=== PATIENT | male | born 1955 | race Two or more races ===

== ENCOUNTER 2024-03-02 11:59 | Inpatient (IN) | payer MEDICARE, MEDICAID ==
[~2024-03-02] VITALS: Ht 167.6 cm; Wt 77.0 kg
--- NOTE | 2024-03-02 12:09 | ED.PDOC ---
History of Present Illness HPI Comments 69-year-old male brought by paramedics from senior care because of abdominal pain which started 2 hours ago. He states the pain is 10/10 with no radiation of the pain. He has not had a bowel movement today. He states that he is passing gas. Denies nausea vomiting. History of hypertension chronic kidney d isease on dialysis Thursday COPD CHF. Blood pressure 137/77. Denies any other symptoms. Time Seen by MD: 12:05 Reviewed Notes: Nurses Notes, Medications, Allergies Information Source: Patient, Emergency Med Personnel Mode of Arrival: EMS Severity: Moderate Timing: Hours Duration: Since onset Past Medical History PAST MEDICAL HISTORY: ESRD, HTN Surgical History: Denies all surgeries Family History Family History: Reviewed,noncontributory to illness Social History Smoker: Non-Smoker Alcohol: Denies ETOH Use Drugs: Denies Drug Use Lives In: Snf Constitutional: denies: chills, diaphoresis, fatigue, fever, malaise, sweats, weakness, others EENTM: denies: blurred vision, double vision, ear bleeding, ear discharge, ear drainage, ear pain, ear ringing, eye pain, eye redness, hearing loss, mouth pain, mouth swelling, nasal discharge, nose bleeding, nose congestion, nose pain, photophobia, tearing, throat pain, throat swelling, voice changes, others Respiratory: denies: cough, hemoptysis, orthopnea, SOB at rest, shortness of breath, SOB with excertion, stridor, wheezing, others Cardiovascular: denies: chest pain, dizzy spells, diaphoresis, Dyspnea on exertion, edema, irregular heart beat, left arm pain, lightheadedness, palpitations, PND, syncope, others Gastrointestinal: reports: abdominal pain; denies: abdomen distended, blood streaked bowels, constipated, diarrhea, dysphagia, difficulty swallowing, hematemesis, melena, nausea, poor appetite, poor fluid intake, rectal bleeding, rectal pain, vomiting, others Genitourinary: denies: burning, dysuria, flank pain, frequency, hematuria, incontinence, penile discharge, penile sore, pain, testicle pain, testicle swelling, urgency, others Neurological: denies: dizziness, fainting, headache, left sided numbness, left sided weakness, numbness, paresthesia, pre-existing deficit, right sided numbness, right sided weakness, seizure, speech problems, tingling, tremors, weakness, others Musculoskeletal: denies: back pain, gout, joint pain, joint swelling, muscle pain, muscle stiffness, neck pain, others Integumetry: denies: bruises, change in color, change in hair/nails, dryness, laceration, lesions, lumps, rash, wounds, others Allergic/Immunocompromised: denies: Difficulty Healing, Frequent Infections, Hives, Itching, others Hematologic/Lymphatic: denies: anemia, blood clots, easy bleeding, easy bruising, swollen glands, others Endocrine: denies: excessive hunger, excessive sweating, excessive thirst, excessive urination, flushing, intolerance to cold, intolerance to heat, unexplained weight gain, unexplained weight loss, others Psychiatric: denies: anxiety, bipolar disorder, depression, hopeless, panic disorder, schizophrenia, sleepless, suicidal, others Physical Exam General Appearance: Moderate Distress HEENT: Normal ENT Inspection, Pharynx Normal, TMs Normal Neck: Full Range of Motion, Non-Tender, Normal, Normal Inspection Respiratory: Chest Non-Tender, Lungs Clear, No Accessory Muscle Use, No Respiratory Distress, Normal Breath Sounds Cardiovascular: No Edema, No JVD, No Murmur, No Gallop, Normal Peripheral Pulses, Regular Rate/Rhythm Breast Exam: Deferred Gastrointestinal: Distended, Soft Genitalia: Deferred Pelvic: Deferred Rectal: Deferred Extremities: No calf tenderness, Normal capillary refill, Normal inspection, Normal range of motion, Non-tender, No pedal edema Musculoskeletal : Apperance: Normal Neurologic: Alert Cerebellar Function: NOT DONE Reflexes: NOT DONE Skin: Dry, Normal Color, Warm Peripheral Pulses: 3+ Radial (R), 3+ Radial (L) Lymphatic: No Adenopathy Was a procedure done? Was a procedure done?: No Differential Dx Considerations may include: Small bowel obstruction Electrolyte imbalance X-Ray, Labs, Meds, VS Vital Signs Date Time Temp Pulse Resp B/P (MAP) Pulse Ox O2 Delivery O2 Flow Rate FiO2 03/02/24 12:19 98.1 76 18 137/77 (97) 100 Patient alert. Complaining of abdominal pain. Vitals stable. Answering all questions. He is on dialysis. Reviewed his previous visit. Blood pressure within normal limits. Explained to the patient. Continue cardiac monitoring. EKG reviewed does not show any acute changes. Time of 1ST Reevaluation: 12:08 Reevaluation 1ST: Unchanged Patient Education/Counseling: Diagnosis, Treatment, Prognosis Family Education/Counseling: No Family Present Departure 1 Departure Time of Disposition: 12:09 Impression: Primary Impression: CHF (congestive heart failure) Qualified Codes: I50.43 - Acute on chronic combined systolic (congestive) and diastolic (congestive) heart failure Additional Impression: Chronic kidney disease on chronic dialysis Disposition: ADMITTED INPATIENT Admit to: Med Surg Condition: Guarded Critical Care Note Critical Care Time?: Yes (45 min-critical care time only) Stability Stability form required: No Heart Score Heart Score: Heart Score Response (Comments) Value History Slightly Suspicious 0 EKG Normal 0 Age >65 2 Risk Factors >3 or Hx ASHD 2 Troponin Normal limit 0 Total 4 I personally scribed for SANTY HUTCHINS MD ([email or web address]) on 03/02/24 at 12:40. Electronically submitted by Taurus Bustillo ([email or web address]). SANTY HUTCHINS MD Mar 02, 2024 12:09
[2024-03-02 13:21] LABS: Basophils # (auto) 0 10 ^3/uL (0-0.2); Eosinophils # (auto) 0.1 10 ^3/uL (0-0.8); Red Cell Distribution Width 16.8 % (11.8-14.3)
[2024-03-02 13:23] LABS: Basophils % (auto) 0.2 % (0.0-2.0); Eosinophils % (auto) 0.9 % (0.0-7.0); Hematocrit 24.1 % (41.0-53.0); Lymphocytes # (auto) 1.2 10 ^3/uL (0.4-5.4); Lymphocytes % (auto) 14.7 % (10.0-50.0); Mean Corpuscular Hemoglobin 31.8 pg (28.0-32.0); Mean Corpuscular Hgb Conc. 33.4 g/dL (32.0-36.0); Monocytes # (auto) 0.9 10 ^3/uL (0-1.3); Neutrophils # (auto) 5.8 10 ^3/uL (1.6-8.6); Neutrophils % (auto) 73.2 % (37.0-80.0); Nucleated Red Blood Cells % 0.1 %; Platelet Count (auto) 216 10^3/uL (140-450); Red Blood Cells 2.53 10^6/uL (4.5-5.90)
--- NOTE | 2024-03-02 13:24 | DVH ---
EXAM: XY CHEST PORTABLE Indication:sob Technique: Single frontal view of the chest was obtained Comparison: None FINDINGS: Lines and Tubes: None Lungs: No focal consolidation. Pleura: No effusion. No pneumothorax. Cardiomediastinal contours: Unremarkable Bones: No acute osseous abnormality. IMPRESSION: No acute cardiopulmonary disease.
[2024-03-02 13:28] LABS: Chloride 98 mmol/L (98-107); Potassium 5.1 mmol/L (3.5-5.1); Sodium 139 mmol/L (136-145)
[2024-03-02 13:29] LABS: Anion Gap 8 (5-15); Carbon Dioxide 33 mmol/L (20-31)
[2024-03-02 13:35] LABS: BUN/Creatinine Ratio 10.9 (10.0-20.0); Blood Urea Nitrogen 73 mg/dL (9-23); Glucose 107 mg/dL (74-106)
--- NOTE | 2024-03-02 13:58 | DVHHP2 ---
History of Present Illness Reason for Visit: Abdominal Pain History of Present Illness 69 [facility] complaining of severe pain with history ESRD and HTN and htn urgency currently bp improved with pain maagment stating acute pain not improving states in agony no acute source esrd HD T S recommended for admission for continued evaluation Cardiovascular: HTN Renal/: Chronic renal failure Review of Systems Constitutional: Yes: Weakness; No: Fever, Chills, Sweats, Malaise, Other Eyes: No: Pain, Vision change, Conjunctivae inflammation, Eyelid inflammation, Other, Redness ENT: No: Ear pain, Ear discharge, Nose pain, Nose discharge, Nose congestion, Mouth pain, Mouth swelling, Throat pain, Throat swelling, Other Respiratory: No: Cough, Dry, Shortness of breath, SOB with excertion, Wheezing, Hemoptysis, Pleuritic Pain, Sputum, Wheezing, Other Cardiovascular: No: Chest Pain, Palpitations, Orthopnea, Paroxysmal Noc. Dyspnea, Edema, Lt Headedness, Other Gastrointestinal: Abdominal Pain; No: Nausea, Vomiting, Diarrhea, Constipation, Melena, Hematochezia, Other Genitourinary: No Dysuria, No Frequency, No Incontinence, No Hematuria, No Retention, No Other Musculoskeletal: No: other, neck pain, shoulder pain, arm pain, back pain, hand pain, leg pain, foot pain Skin: No: Rash, Lesions, Jaundice, Bruising, Other Neurological: No: Weakness, Numbness, Incoordination, Change in speech, Confusion, Seizures, Other Exam Vital Signs Vital Signs Date Time Temp Pulse Resp B/P (MAP) Pulse Ox O2 Delivery O2 Flow Rate FiO2 03/02/24 12:19 98.1 76 18 137/77 (97) 100 General Appearance: Alert, Oriented X3 HEENT: Atraumatic, PERRLA Respiratory: Clear to auscultation Cardiovascular: Regular rate, Normal S1 Abdominal: Normal bowel sounds, Soft Extremities: No clubbing, No cyanosis Skin: No rashes, No breakdown Neuro: Normal gait, Normal speech Psych/Mental Status: Mood NL Labs/Xrays Labs Test 03/02/24 13:00 Range/Units White Blood Count 8.0 4.4-10.8 10^3/uL Red Blood Count 2.53 L 4.5-5.90 10^6/uL Hemoglobin 8.0 L 13.5-17.5 g/dL Hematocrit 24.1 L 41.0-53.0 % Mean Corpuscular Volume 95.0 80.0-100.0 fL Mean Corpuscular Hemoglobin 31.8 28.0-32.0 pg Mean Corpuscular Hemoglobin Concent 33.4 32.0-36.0 g/dL Red Cell Distribution Width 16.8 H 11.8-14.3 % Platelet Count 216 140-450 10^3/uL Mean Platelet Volume 9.1 6.9-10.8 fL Neutrophils (%) (Auto) 73.2 37.0-80.0 % Lymphocytes (%) (Auto) 14.7 10.0-50.0 % Monocytes (%) (Auto) 11.0 0.0-12.0 % Eosinophils (%) (Auto) 0.9 0.0-7.0 % Basophils (%) (Auto) 0.2 0.0-2.0 % Neutrophils # (Auto) 5.8 1.6-8.6 10 ^3/uL Lymphocytes # (Auto) 1.2 0.4-5.4 10 ^3/uL Monocytes # (Auto) 0.9 0-1.3 10 ^3/uL Eosinophils # (Auto) 0.1 0-0.8 10 ^3/uL Basophils # (Auto) 0 0-0.2 10 ^3/uL Nucleated Red Blood Cells 0.1 % Sodium Level 139 136-145 mmol/L Potassium Level 5.1 3.5-5.1 mmol/L Chloride Level 98 98-107 mmol/L Carbon Dioxide Level 33 H 20-31 mmol/L Anion Gap 8 5-15 Blood Urea Nitrogen 73 H 9-23 mg/dL Creatinine 6.68 H 0.700-1.30 mg/dL Glomerular Filtration Rate Calc 8 >90 mL/min BUN/Creatinine Ratio 10.9 10.0-20.0 Serum Glucose 107 H 74-106 mg/dL Calcium Level 10.0 8.7-10.4 mg/dL Troponin I High Sensitivity 39 </=54 ng/L Assessment/Plan Assessment/Plan Admit Med/Surge Abdominal Pain Intractable with Hypertensive urgency BP improved with Pain management IV prn meds for pain IV hydration monitor for fluid overload ESRD renal evaluation required to continued with HD for HD Plan discussed with: Patient Problem List: (1) CHF (congestive heart failure) (2) Chronic kidney disease on chronic dialysis Date of Service: Mar 02, 2024 Billing Provider: GEMMA AZEVEDO MD Common Visit Codes: 08572-[id number] INP/OBS CARE (HIGH) GEMMA AZEVEDO MD Mar 02, 2024 13:58
[2024-03-02] MEDS ORDERED: MAALOX PLUS or MAALOX 30 ML PO PRN (14:00)
[2024-03-02] MEDS ORDERED: ONDANSETRON HCL 4 MG/2 ML VIAL IV PRN (14:00)
[2024-03-02] MEDS ORDERED: DOCUSATE SOD 100 MG CAP PO PRN (14:00)
[2024-03-02] MEDS ORDERED: LORazepam 0.5 MG TAB PO PRN (14:00)
[2024-03-02] MEDS: MORPHINE SULFATE INJ 2 MG/ml SYRG IM ONE (14:15)
[2024-03-02] MEDS: ONDANSETRON HCL 4 MG/2 ML VIAL IM ONE (14:15)
[2024-03-02] MEDS: MORPHINE SULFATE 4 MG/ML SYR/VIAL IV ONE (14:27)
[2024-03-02] MEDS: ONDANSETRON HCL 4 MG/2 ML VIAL IV ONE (14:28)
--- NOTE | 2024-03-02 16:40 | DVHINCON2 ---
Date of service: Mar 02, 2024 Referring Physician Hospitalist Reason for Consultation ESRD History of Present Illness 69-year-old male past medical history of end-stage renal disease for more than 10 years, alcohol abuse with liver disease, hypertension. Patient gave limited history because he is complaining of abdominal pain. He reports that he gets dialysis on Thursday and Saturdays at [facility] in his normally transported from a chronic living facility. He reports that he had a complete dialysis treatment on Thursday however this morning he woke up complaining of abdominal pain and distention. Allergies: Coded Allergies: NO KNOWN ALLERGIES (Unverified , 03/02/24) Current Medications Current Medications Medications (Trade) Dose Ordered Sig/Mak Route PRN Reason Start Time Stop Time Status Last Admin Lorazepam (Ativan Tablet) 0.5 mg Q6HP PRN PO ANXIETY 03/02/24 14:00 Al Hydrox/Mg Hydrox/Simethicone (Maalox Plus) 30 ml Q6HP PRN PO FOR STOMACH DISTRESS 03/02/24 14:00 Docusate Sodium (Colace Capsule) 100 mg BIDPRN PRN PO FOR CONSTIPATION 03/02/24 14:00 Acetaminophen (Tylenol Tablet) 650 mg Q6HP PRN PO PAIN SCALE 1-3 OR TEMP>100.4 03/02/24 14:00 Temazepam (Restoril) 15 mg QHSP PRN PO FOR INSOMNIA 03/02/24 14:00 Acetaminophen/ Hydrocodone Bitart ([place] 5/325MG Tab) 1 tab Q4HP PRN PO MODERATE PAIN (4-6 PAIN SCALE) 03/02/24 14:00 03/02/24 16:43 Ondansetron HCl (Zofran) 4 mg Q4HP PRN IV NAUSEA / VOMITING 03/02/24 14:00 Morphine Sulfate 2 mg Q4HPRN PRN IV SEVERE PAIN (7-10 PAIN SCALE) 03/02/24 14:00 Review of Systems Abdominal pain H&P Exam Vital Signs/I&O Vital Sign Date Time Temp Pulse Resp B/P (MAP) Pulse Ox O2 Delivery O2 Flow Rate FiO2 03/02/24 15:40 84 16 128/75 (92) 100 03/02/24 12:20 98.7 98.7 Physical Exam Elderly male Appears in distress Complaining of abdominal pain, abdomen is distended Mild guarding at the right lower quadrant No pitting edema Left radiocephalic AV fistula with positive thrill and bruit Labs/Diagnostic Data Labs/Diagnostic Data Laboratory Tests Test 03/02/24 13:00 Range/Units White Blood Count 8.0 4.4-10.8 10^3/uL Red Blood Count 2.53 L 4.5-5.90 10^6/uL Hemoglobin 8.0 L 13.5-17.5 g/dL Hematocrit 24.1 L 41.0-53.0 % Mean Corpuscular Volume 95.0 80.0-100.0 fL Mean Corpuscular Hemoglobin 31.8 28.0-32.0 pg Mean Corpuscular Hemoglobin Concent 33.4 32.0-36.0 g/dL Red Cell Distribution Width 16.8 H 11.8-14.3 % Platelet Count 216 140-450 10^3/uL Mean Platelet Volume 9.1 6.9-10.8 fL Neutrophils (%) (Auto) 73.2 37.0-80.0 % Lymphocytes (%) (Auto) 14.7 10.0-50.0 % Monocytes (%) (Auto) 11.0 0.0-12.0 % Eosinophils (%) (Auto) 0.9 0.0-7.0 % Basophils (%) (Auto) 0.2 0.0-2.0 % Neutrophils # (Auto) 5.8 1.6-8.6 10 ^3/uL Lymphocytes # (Auto) 1.2 0.4-5.4 10 ^3/uL Monocytes # (Auto) 0.9 0-1.3 10 ^3/uL Eosinophils # (Auto) 0.1 0-0.8 10 ^3/uL Basophils # (Auto) 0 0-0.2 10 ^3/uL Nucleated Red Blood Cells 0.1 % Sodium Level 139 136-145 mmol/L Potassium Level 5.1 3.5-5.1 mmol/L Chloride Level 98 98-107 mmol/L Carbon Dioxide Level 33 H 20-31 mmol/L Anion Gap 8 5-15 Blood Urea Nitrogen 73 H 9-23 mg/dL Creatinine 6.68 H 0.700-1.30 mg/dL Glomerular Filtration Rate Calc 8 >90 mL/min BUN/Creatinine Ratio 10.9 10.0-20.0 Serum Glucose 107 H 74-106 mg/dL Calcium Level 10.0 8.7-10.4 mg/dL Troponin I High Sensitivity 39 </=54 ng/L B-Type Natriuretic Peptide 2118.53 0-100 pg/mL Assessment End-stage renal disease on hemodialysis Hypertension Mild hyperkalemia Abdominal distention and pain Anemia due to chronic kidney disease Liver disease Obtain imaging of the abdomen to evaluate abdominal pain We will schedule hemodialysis as per his schedule Resume home medications Avoid hypotension pain control as per primary team Rest of care as per primary medical team Epogen will be given during dialysis treatment as well as an anemia panel and hepatitis panel Plan discussed with: Patient SHELIA ATKINS MD Mar 02, 2024 16:40
[2024-03-02] MEDS: HYDROcodone-ACET 5/325MG TAB PO PRN (16:43)
--- NOTE | 2024-03-02 17:32 | DVH ---
Exam: CT CT AB PEL WO CON-NO ORAL OR IV History: ABD PAIN Comparison Study: None Technique: Multidetector spiral CT of the abdomen and pelvis was performed from lung bases to pubic symphysis. Imaging was performed without IV contrast. Axial, coronal and sagittal multiplanar reform ats were obtained from the axial data set by the technologist. Radiation dose : Abdomen/Pelvis: CTDIvol 11 mGy, DLP 647.2 mGy*cm. Findings: Evaluation of solid organs is limited due to lack of intravenous contrast use. Lung Bases: Small right pleural effusion. Right basilar atelectasis and consolidation. Liver: The liver is normal in size. No focal lesions. Gallbladder and biliary Tree: Gallbladder is surgically absent. Spleen: Unremarkable Pancreas: The pancreas is grossly normal in appearance. Adrenal Glands: Left adrenal gland appears unremarkable. Right adrenal gland is obscured. Kidneys: Right kidney is diffusely abnormal. No normal right renal parenchyma is seen. Suspect ruptur e with hemorrhage replacing the right kidney. Free fluid in the right pericolic gutter and retroperit oneum could be related to ureteral injury with urine leak. Few left renal cysts. No left hydronephros is. Bladder: Grossly unremarkable for degree of distention. Bowel: The stomach is grossly normal in appearance. Small bowel and colon are normal in caliber and d istribution. Normal appendix is visualized in the right lower quadrant without findings of appendici tis. Sigmoid diverticulosis noted. Ascites: Free fluid as described above. Lymphadenopathy: No mesenteric, retroperitoneal or periportal lymphadenopathy. Abdominal wall and Mesentery: Unremarkable. Vasculature: The visualized abdominal aorta is normal in size and caliber. There is extensive athero sclerotic calcification of the aorta and its branches. Evaluation of abdominal and pelvic vessels is limited due to lack of intravenous contrast. Pelvic Organs: Unremarkable Musculoskeletal: Multiple lucent foci around endplates in the spine. IMPRESSION: 1. Diffuse abnormality of the right kidney. Suspect right renal rupture. It is unclear whether this is posttraumatic or related to a mass which hemorrhaged. No normal right renal parenchyma identified . Free fluid in the right paracolic gutter and retroperitoneum could be urine related to a ureteral i njury. Recommend further evaluation with CT of the abdomen and pelvis with contrast. Radiation optimization: All CT scans at this facility use at least one of these dose optimization kallie hniques: Automated exposure control mA and/or kV adjustment per patient size (includes targeted exams where dose is matched to clinical indication) or iterative reconstruction. HS:Y
[2024-03-02 19:30] VITALS: PULSE 105; RESP 21; O2SAT 100
[2024-03-02] MEDS: IOHEXOL 300 MG/ML 100ML BOTTLE IJ ONE (20:42)
[2024-03-02] MEDS: ACETAMINOPHEN 325 MG TAB PO PRN (21:04)
[2024-03-02] MEDS: MORPHINE SULFATE INJ 2 MG/ml SYRG IV PRN (21:05)
[2024-03-02] MEDS: TEMAZEPAM 15 MG CAP PO PRN (21:33)
--- NOTE | 2024-03-02 21:35 | DVH ---
Exam: CT CT AB PEL WITH IV CON ONLY History: r/o ureteral rupture Comparison Study: None available at time of dictation. TECHNIQUE: Multidetector CT of the abdomen was performed from lung bases to pubic symphysis. Imaging was performed without IV contrast. Axial, coronal and sagittal multiplanar reformats were obtained fr om the axial data set by the technologist. Radiation dose Information: CT Dose: CTDI volume is 12.2 mGy. Dose-length product is 753.51 mGy*cm Omnipaque 300: 100 mL FINDINGS: Lung Bases: No acute or significant lung base finding. Normal heart size. No pericardial effusion. Small right pleural effusion. Liver: The liver is normal in size. No focal lesions. Gallbladder and biliary Tree: Gallbladder has been surgically removed. Spleen: Unremarkable Pancreas: The pancreas is grossly normal in appearance. Adrenal Glands: Unremarkable Kidneys: Right kidney is not well defined. There is fluid in the retroperitoneum on the right with wh at appears to be disruption of the right kidney. There is a 4.3 by 2 cm fluid collection in the right renal fossa. There is thickening of Gerota's fascia anterior to the right renal fossa and fluid intr aperitoneally anterior aorta and inferior vena cava. There is free fluid noted to the aortic bifurcat ion within the peritoneal cavity. Atrophic left kidney is noted with renal cysts. Bladder: Grossly unremarkable for degree of distention. Bowel: The stomach is grossly normal in appearance. Small bowel and colon are normal in caliber and d istribution. The appendix is not visualized; however, no secondary findings of acute appendicitis id entified. Ascites: Small amount of ascites around the liver Lymphadenopathy: No mesenteric, retroperitoneal or periportal lymphadenopathy. Abdominal wall and Mesentery: Unremarkable. Vasculature: The visualized abdominal aorta is normal in size and caliber. Evaluation of abdominal a nd pelvic vessels is limited due to lack of intravenous contrast. Pelvic Organs: Unremarkable Musculoskeletal: No aggressive focal bony lesions, acute fractures or dislocation. Soft tissues: Unremarkable IMPRESSION: 1. Right kidney not well seen appears to be fragmented consistent with a renal rupture. There is hem orrhage in the right pararenal fossa and extending into the peritoneal cavity anterior to the inferio r vena cava and aorta extending to the aortic bifurcation into the top of the pelvis. 2. Small right pleural effusion 3. Pulmonary artery measures 3.6 cm raising question of pulmonary artery hypertension. Radiation optimization: All CT scans at this facility use at least one of these dose optimization kallie hniques: Automated exposure control mA and/or kV adjustment per patient size (includes targeted exams where dose is matched to clinical indication) or iterative reconstruction. CRITICAL FINDINGS Critical Result: RIGHT URETERAL RUPTURE WITH HEMORRHAGE Findings discussed with GEMMA Pandya at 03/02/2024 09:32 PM, and acknowledged receipt and unders tanding of the findings. ..
[2024-03-02 22:07] LABS: Hematocrit 16.7 % (41.0-53.0)
[2024-03-02 22:23] LABS: INR 1.24 (0.9-1.15); Partial Thromboplastin Time 27.6 SEC (24.5-34.5); Prothrombin Time 12.9 sec (9.3-11.8)
[2024-03-02 22:24] LABS: Hemoglobin 5.5 g/dL (13.5-17.5)
[2024-03-03 01:17] VITALS: BP 111/70; PULSE 96; RESP 24; TEMP 97.5; O2SAT 99
[2024-03-03] MEDS ORDERED: SODIUM CHL 0.9% 1000 ML BAG XX ONE (07:00)
--- NOTE | 2024-03-03 14:48 | ECG ---
[facility] Test Date: 2024-03-02 Test Time: 12:03:04 Pat Name: MAX SHAH Department: ED Room: [address] [place] [address] A Gender: M Sample Tester Grinder: GAYLE : 1955 Requested By: SANTY HUTCHINS Order Number: [id number] Reading MD: Russ Franklin Measurements Intervals Mobile Rate: 81 P: 18 MD: 163 QRS: -22 QRSD: 79 T: 133 QT: 385 QTc: 447 Interpretive Statements Sinus rhythm Borderline left axis deviation Abnormal R-wave progression, early transition Borderline repolarization abnormality Electronically Signed On 03-10-2024 13:05:09 PST by Russ Franklin Please click the below link to view image of tracing.
[2024-03-03] MEDS ORDERED: EPOETIN ALFA-EPBX 10,000 UNIT/1ML VIAL SC ONE (21:00)
== END 2024-03-03 01:20 | disposition short-term general hospital (02) | DRG 698 ==
LOC: ER 11:59 → EDBD 11:59 → OVERFLOW 13:51
PROVIDERS: ADMIT Hospitalist; ATTEND Nurse Practitioner Acute Care
PROC: 30233N1 Transfusion of Nonautologous Red Blood Cells into Peripheral Vein, Percutaneous Approach (ICD-10-PCS; principal; 2024-03-02)
DX: S37.091A Other injury of right kidney, initial encounter (principal); I50.33 Acute on chronic diastolic (congestive) heart failure; N18.6 End stage renal disease; I13.2 Hypertensive heart and chronic kidney disease with heart failure and with stage 5 chronic kidney disease, or end stage renal disease; R14.0 Abdominal distension (gaseous); R10.9 Unspecified abdominal pain; J44.9 Chronic obstructive pulmonary disease, unspecified; I16.0 Hypertensive urgency; E87.5 Hyperkalemia; D63.1 Anemia in chronic kidney disease; K76.9 Liver disease, unspecified; I50.9 Heart failure, unspecified; Z99.2 Dependence on renal dialysis; Z79.899 Other long term (current) drug therapy
CPT/HCPCS: 36415; 71045; 74176; 74177; 80048; 83880; 84484; 85014; 85018; 85025; 85610; 85730; 86850; 86900; 86901; 86920; 93005; 99291; G0378; J2405